=== PATIENT | male | born 1990 | race Caucasian/White ===

== ENCOUNTER 2020-01-13 11:30 | Emergency (ER) | payer SELFPAY ==
[2020-01-13] MEDS ORDERED: Ketorolac 30 MG/ML SDV IM ONE (12:09)
[2020-01-13] MEDS ORDERED: Orphenadrine 100 MG Tab.ER PO ONE (12:09)
--- NOTE | 2020-01-13 12:14 | EDM.PDOC ---
<Abdirahman Berg Kapil - Last Filed: 01/13/20 12:21> ED HPI GENERAL MEDICAL PROBLEM - General Chief Complaint: Back Pain or Injury Stated Complaint: [facility] Time Seen by Provider: 01/13/20 11:41 Source of Information: Reports: Patient History Limitations: Reports: No Limitations - History of Present Illness INITIAL COMMENTS - FREE TEXT/NARRATIVE: Randolph is a 29 YO male that presents to the ED with low back pain. He was lifting scaffolding yesterday at approximately 1300 when he twisted and felt immediate pain just above the pelvis. Pain has been constant. The pain is described as a dull ache that is rated as minimal when sitting. When standing, it is described as a sharp, stabbing sensation and rated at a 10 out of 10. Denies pain radiating to other locations, numbness, tingling, radicular pain, loss of range of motion in lower extremities, urinary or fecal incontinence. Has taken Alieve at 0800 which did not provide relief. Onset Date: 01/12/20 Onset Time: 13:00 Duration: Day(s): Location: Reports: Back Quality: Reports: Ache, Sharp, Stabbing Improves with: Reports: Rest Worsens with: Reports: Movement Treatments CAREER SPECIALIST: Reports: Other (see below) (Naproxen) Lower Back Pain Score (Numeric/FACES): 6 - Related Data Allergies Allergy/AdvReac Type Severity Reaction Status Date / Time No Known Allergies Allergy Verified 01/13/20 11:38 Home Meds: Home Meds Orphenadrine [Norflex] 100 mg PO BID PRN #20 tab 01/13/20 [Rx] traMADol [Ultram] 50 mg PO Q6H PRN #20 tab 01/13/20 [Rx] Past Medical History - Past Health History Medical/Surgical History: Denies Medical/Surgical History Musculoskeletal History: Reports: Back Pain, Chronic Social & Family History - Family History Family Medical History: Noncontributory - Tobacco Use Smoking Status *Q: Never Smoker - Caffeine Use Caffeine Use: Reports: Soda - Recreational Drug Use Recreational Drug Use: No ED ROS GENERAL - Review of Systems Review Of Systems: See Below Musculoskeletal: Reports: Back Pain (Located approximately L5/S1.), Muscle Pain, Muscle Stiffness. Denies: Leg Pain, Foot Pain Neurological: Reports: Gait Disturbance (Difficulty walking due to pain.). Denies: Numbness, Paresthesia, Tingling ED EXAM,LOWER BACK PAIN/INJURY - Physical Exam Exam: See Below Exam Limited By: Physical Impairment General Appearance: Alert, No Apparent Distress Respiratory/Chest: No Respiratory Distress, Lungs Clear, Normal Breath Sounds, No Accessory Muscle Use, Chest Non-Tender Cardiovascular: Regular Rate, Rhythm, No Gallop, No Murmur, No Rub Back Exam: Decreased Range of Motion, Paraspinal Tenderness, Vertebral Tenderness Extremities: No: Leg Pain, Limited Range of Motion Neurological: Alert, Normal Mood/Affect, Normal Dorsiflexion, Normal Plantar Flexion, No Motor/Sensory Deficits Skin Exam: Warm, Dry, Normal Color Departure - Departure Disposition: Home, Self-Care 01 Clinical Impression: Low back pain Qualifiers: Chronicity: acute Back pain laterality: bilateral Sciatica presence: without sciatica Qualified Code(s): M54.5 - Low back pain - Discharge Information Prescriptions: Orphenadrine [Norflex] 100 mg PO BID PRN #20 tab PRN Reason: Spasms traMADol [Ultram] 50 mg PO Q6H PRN #20 tab PRN Reason: Pain Instructions: Back Exercises, [id number] Referrals: PCP,None [Primary Care Provider] - Forms: ED Department Discharge Additional Instructions: You have been evaluated in the ED for your lower back injury/pain. Your x-ray demonstrated no acute fracture or other bony abnormalities. You were given a CD of these images, so you may show chiropractors if they should request these. These are also beneficial for baseline studies, if your back pain does n ot get much better with conservative management. Please use ice/heat as tolerated to the affected area. You may take Tylenol 500 mg or ibuprofen 600mg q6 hrs for pain relief. Please do so until you have a tolerable level of pain with activity. Do not exceed 4000mg Tylenol or 3200mg ibuprofen in a 24 hour time period. Were given a prescription for tramadol, 1 tablet every 6 hours as needed for p ain relief that is not relieved by Tylenol or ibuprofen alone. This medication can be addictive, so take as few of these as possible to provide pain relief. This medication can also cause some constipation, recommend you take some MiraLAX while using this medication to help keep your bowels regular. Do not drive while taking this medication. You are also given a muscle relaxer called Norflex, 1 tab every 12 hours as needed for further muscle spasms. If you do not already have a primary care provider, please call our clinic [phone] and set up with a family practice provider of your choice. Please return to ED if your symptoms should change or worsen. Sepsis Event Note (ED) - Evaluation Sepsis Screening Result: No Definite Risk <Carmela Srivastava - Last Filed: 01/13/20 14:08> Course - Vital Signs Last Recorded V/S: Last Vital Signs Temp 98.7 F 01/13/20 11:35 Pulse 91 01/13/20 11:35 Resp 18 01/13/20 11:35 BP 115/71 01/13/20 11:35 Pulse Ox 98 01/13/20 11:35 - Orders/Labs/Meds Meds: Medications Discontinued Medications Generic Name Dose Route Start Last Admin Trade Name Freq PRN Reason Stop Dose Admin Ketorolac Tromethamine 60 mg 01/13/20 12:09 01/13/20 12:14 Toradol IM 01/13/20 12:10 60 mg ONETIME ONE Administration Orphenadrine Citrate 100 mg 01/13/20 12:09 01/13/20 12:15 Norflex PO 01/13/20 12:10 100 mg ONETIME ONE Administration Tramadol HCl 50 mg 01/13/20 12:51 01/13/20 13:15 Ultram PO 01/13/20 12:52 50 mg ONETIME ONE Administration - Re-Assessments/Exams Free Text/Narrative Re-Assessment/Exam: 01/13/20 12:20 I have read and reviewed the student's HPI and examined the patient and agree with FLAVIA Stinson-student. We did order lumbar films, and 60 mg IM Toradol, and 100 mg p.o. Norflex for initial management. 01/13/20 14:07 Patient notes that he is feeling much better after the tramadol, patient be discharged home with a short course of this, and some general recommendations. Departure - Departure Time of Disposition: 14:07 Condition: Good - Discharge Information *PRESCRIPTION DRUG MONITORING PROGRAM REVIEWED*: Yes *COPY OF PRESCRIPTION DRUG MONITORING REPORT IN PATIENT KEI: No Sepsis Event Note (ED) - Focused Exam Vital Signs: Vital Signs Temp Pulse Resp BP Pulse Ox 01/13/20 11:35 98.7 F 91 18 115/71 98
[2020-01-13] MEDS ORDERED: traMADol 50 MG Tab PO ONE (12:51)
--- NOTE | 2020-01-13 13:18 | CR ---
Lumbar spine: AP and lateral views lumbar spine were obtained. Comparison: No previous study. Vertebral body heights and disc spaces are maintained. Pedicles are intact. No fracture or subluxation is seen. Impression: 1. No abnormality is appreciated on 2 view lumbar spine study. Diagnostic code #1 This report was dictated in MDT
[2020-01-13 14:38] VITALS: BP 122/77; PULSE 80
== END 2020-01-13 14:30 | disposition home or self-care (01) ==
LOC: JD.ED 11:30
DX: M54.5 Low back pain (principal)
CPT/HCPCS: 72100; 96372; 99284; A9270; J1885; 99283